=== PATIENT | female | born 1940 | race Two or more races ===

== ENCOUNTER 2022-11-24 17:29 | Emergency (ER) | payer OTHER ==
[~2022-11-24] VITALS: Ht 160 cm; Wt 54.4 kg
== END 2022-11-24 19:19 | disposition home or self-care (01) ==
LOC: ER 17:29
DX: S00.03XA Contusion of scalp, initial encounter (principal); W18.39XA Other fall on same level, initial encounter; Y93.9 Activity, unspecified; Y92.9 Unspecified place or not applicable; G30.9 Alzheimer's disease, unspecified; F02.80 Dementia in other diseases classified elsewhere, unspecified severity, without behavioral disturbance, psychotic disturbance, mood disturbance, and anxiety; S50.02XA Contusion of left elbow, initial encounter

== ENCOUNTER 2023-03-17 14:15 | Emergency (ER) | payer OTHER ==
[~2023-03-17] VITALS: Ht 160 cm; Wt 45.4 kg
[2023-03-17] MEDS ORDERED: MEMANTINE HCL10 MG (14:59)
[2023-03-17] MEDS ORDERED: SIMVASTATIN10 MG PO (14:59)
[2023-03-17] MEDS ORDERED: GLIPIZIDE ER2.5 MG (14:59)
[2023-03-17] MEDS ORDERED: RIVASTIGMINE1 EAC1 TD (14:59)
[2023-03-17] MEDS ORDERED: LOSARTAN POTASS50 MG PO (14:59)
[2023-03-17] MEDS ORDERED: AMLODIPINE BESYL5 MG PO (14:59)
[2023-03-17] MEDS ORDERED: CITALOPRAM HBR10 MG PO (15:00)
== END 2023-03-17 17:56 | disposition home or self-care (01) ==
LOC: ER 14:15
DX: S01.81XA Laceration without foreign body of other part of head, initial encounter (principal); S14.109A Unspecified injury at unspecified level of cervical spinal cord, initial encounter; W18.30XA Fall on same level, unspecified, initial encounter; Y93.9 Activity, unspecified; Y92.89 Other specified places as the place of occurrence of the external cause; Y99.9 Unspecified external cause status; G30.9 Alzheimer's disease, unspecified; F02.80 Dementia in other diseases classified elsewhere, unspecified severity, without behavioral disturbance, psychotic disturbance, mood disturbance, and anxiety
CPT/HCPCS: 12002; 70450; 72125; 90471; 90714; 99284; J1670

== ENCOUNTER → 2023-03-28 | Emergency (ER) | payer OTHER ==
[~2023-03-28] VITALS: Ht 157.5 cm; Wt 51.3 kg
[~2023-03-28] MED LIST: AMLODIPINE BESYL5 MG PO; CITALOPRAM HBR10 MG PO; GLIPIZIDE ER2.5 MG; LOSARTAN POTASS50 MG PO; MEMANTINE HCL10 MG; RIVASTIGMINE1 EAC1 TD; SIMVASTATIN10 MG PO
== END | disposition home or self-care (01) ==
LOC: ER 14:55
DX: Z53.21 Procedure and treatment not carried out due to patient leaving prior to being seen by health care provider (principal)